=== PATIENT | female | born 1945 | race Caucasian/White ===

== ENCOUNTER 2019-06-05 17:36 | Inpatient (IN) | payer OTHER ==
[~2019-06-05] VITALS: Ht 157.5 cm; Wt 73.5 kg
[2019-06-05 17:53] VITALS: BP 98/41
[2019-06-05 18:42] LABS: ABSOLUTE NEUTROPHILS 4.1 thou/uL (1.4-8.2); BASOPHILS 0.7 % (0.0-2.0); EOSINOPHILS 3.8 % (0.0-3.0); HEMOGLOBIN 12.5 gm/dL (12.0-15.0); LYMPHOCYTES 26.4 % (24.0-44.0); MCH 32.5 pg (26.0-34.0); MCHC 33.8 g/dL (28.0-37.0); MCV 96.2 fL (80.0-100.0); MONOCYTES 7.2 % (1.0-8.0); POLYS 61.9 % (36.0-66.0); RBC 3.84 mil/uL (4.20-5.00); RDW 14.5 % (10.5-14.5); WBC 6.7 thou/uL (4.0-11.0)
[2019-06-05 18:43] LABS: URINE BILIRUBIN NEGATIVE (Negative); URINE BLOOD NEGATIVE (Negative); URINE CLARITY CLEAR; URINE COLOR YELLOW; URINE GLUCOSE-RANDOM* NEGATIVE (Negative); URINE KETONES NEGATIVE (Negative); URINE PROTEIN (DIPSTICK) NEGATIVE (Negative); URINE SPECIFIC GRAVITY >= 1.030 (1.005-1.035); URINE UROBILINOGEN 0.2 E.U./dl (0.2-1.0)
[2019-06-05 18:44] LABS: URINE LEUKOCYTES-REFLEX 1+ (Negative); URINE NITRITE-REFLEX POSITIVE (Negative)
[2019-06-05 18:48] LABS: SQUAMOUS >10 Many /LPF (0-3); URINE RBC None Seen /HPF (0-2); URINE WBC-REFLEX >25 Many /HPF (0-5)
[2019-06-05 18:49] LABS: CRYSTALS None Seen /LPF (None Seen)
[2019-06-05 18:53] LABS: CALCIUM 9.2 mg/dL (8.5-10.1)
[2019-06-05 18:58] LABS: PLATELET COUNT 426 thou/uL (150-400)
[2019-06-05 18:59] LABS: ALBUMIN 3.3 g/dL (3.4-5.0); TOTAL BILIRUBIN 0.3 mg/dL (<0.1-1.0); TOTAL PROTEIN 6.6 g/dL (6.4-8.2)
[2019-06-05 19:29] LABS: INR 2.3; PROTIME 23.7 Seconds (9.3-11.4)
[2019-06-05] MEDS ORDERED: ACETAMINOPHEN325 MG PO (20:12)
[2019-06-05] MEDS ORDERED: MYSOLINE50 MG PO (20:13)
[2019-06-05] MEDS ORDERED: LEVETIRACETAM500 M1 PO (20:14)
[2019-06-05] MEDS ORDERED: AMARYL2 M1 PO (20:15)
[2019-06-05] MEDS ORDERED: LIPITOR40 MG PO (20:22)
[2019-06-05] MEDS ORDERED: ASPIR 8181 M1 PO (20:23)
[2019-06-05] MEDS ORDERED: VITAMIN B-121000 MC2 SUBLING (20:24)
[2019-06-05] MEDS ORDERED: COUMADIN 4 MG TA4 M1 PO (20:25)
[2019-06-05] MEDS ORDERED: COUMADIN 3 MG TA3 MG PO (20:25)
[2019-06-05] MEDS ORDERED: COUMADIN7.5 MG PO (20:26)
[2019-06-05] MEDS ORDERED: TOPROL XL25 MG PO (20:26)
[2019-06-05] MEDS ORDERED: WARFARIN SODIUM6 MG PO (20:26)
[2019-06-05] MEDS ORDERED: COLACE100 MG PO (20:27)
[2019-06-05] MEDS ORDERED: TROSPIUM CHLORI20 MG PO (20:27)
[2019-06-05 20:29] VITALS: BP 95/70
[2019-06-05 21:00] VITALS: BP 140/82
--- NOTE | 2019-06-06 05:50 | NUR ---
PT TO UNIT AROUND 2100. BROUGHT BED BUT TRANFERRED TO A W/C. PT WEAK AND UNSTEADY ON FEET, REQUIRED ASSISTANCE WITH TRANSFER. VITAL SIGNS TAKEN. ASSESSMENT COMPLETED. PT AGITATED AND CALLING OUT JUST ABOUT ALL SHIFT. MEDS ENTERED. PT A&O X1. TYPE 2 DIABETIC, ACCUCHECKS ACHS. VERY HARD OF HEARING, WEARS GLASSES BUT SON REPORTS THEY WERE LEFT AT HOME. SITTING IN THE DAY ROOM ALL OF SHIFT TO BE MONITORED BY STAFF, WILL CONTINUE TO MONITOR.
[2019-06-06 09:02] VITALS: BP 109/48
--- NOTE | 2019-06-06 09:51 | NUR ---
0700 ASSUMED CARE OF PATIENT. PATIENT SITTING IN DAYROOM AT THAT TIME. PATIENT ATE BREAKFAST AND TOOK MEDICATION WITHOUT INCIDENT. PATIENT CONFUSED AND DOES NOT MAKE SENSE AT TIMES. PATIENT MOVING SELF IN WC. WILL CONTINUE TO OBSERVE
--- NOTE | 2019-06-06 10:56 | EKG ---
[facility] [place] [address] ELECTROCARDIOGRAM REPORT Name: HECTOR GRANADOS Room #: [facility]- ADM IN M.R.#: [id number] Admission: 06/05/19 Attend Phys: Darwin Phelps DO Discharge: Date of : 43 Report #: [id number] THIS REPORT FOR: cc: Simon Riggs MD,Simon Salcido,Kavon Knutson MD [facility] ~ THIS REPORT FOR: //name// [facility] ED Test Date: 2019-06-05 Test Time: 18:31:04 Pat Name: HECTOR GRANADOS Department: Room: [facility] Gender: F Computer Teacher: main : 1945 Requested By: Sean Cheatham Order Number: [id number] MD: Kaovn Salcido Measurements Intervals [place] Rate: 71 P: NM: QRS: -42 QRSD: 114 T: 13 QT: 419 QTc: 456 Interpretive Statements Atrial fibrillation Nonspecific T wave abnormality No previous ECG available for comparison Electronically Signed On 06-06-2019 10:54:45 CDT by Kavon Salcido [email or web address] <ELECTRONICALLY SIGNED> By: Kavon Salcido MD, FAC 06/06/19 1054 30 30 Kavon Salcido MD, [facility] /EPI
--- NOTE | 2019-06-06 14:13 | NUR ---
PATIENT RESTING IN BED WITH EYES CLOSED. MEDICATION TAKEN WITHOUT DIFFICULTY. PATIENT CLOSES EYES AGAIN. WILL CONTINUE TO OBSERVE.
[2019-06-06 23:08] VITALS: BP 109/48
--- NOTE | 2019-06-06 23:18 | NUR ---
Assumed care at change of shift. Pt. is sitting in day room sitting in recliner and watching a movie with peers. No signs or symptoms of pain or distress noted. Pt. took pills whole with water and no difficulties noted.
--- NOTE | 2019-06-06 23:34 | NUR ---
Pt. resting quietly in bed with eyes closed. Respirations even and non-labored. Pt. appears to be sleeping. NO signs or symptoms of pain or distress noted.
[2019-06-07 08:27] VITALS: BP 127/49
[2019-06-07 10:53] VITALS: BP 127/49
--- NOTE | 2019-06-07 11:11 | NUR ---
ASSUMED CARE AT 0700 THIS MORNING. ASSISTED UP FROM HER BED BY SWAMPER'S. SHE IS CONFUSED, BUT HAS BEEN COOPERATIVE WITH STAFF. SHE TOOK HER MORNING MEDICATIONS WITHOUT PROBLEMS NOTED. SHE ATE HER MEALS ON THE UNIT.
--- NOTE | 2019-06-07 16:31 | NUR ---
SHILA spoke to patient's son Nba Damico [phone] who informed patient does not have a DPOA. She had been living at home with him until she had a seizure on approximately June 02, 2019. She was hospitalized and then transferred to [facility] for rehab. She began to get get confused, increased agitation and verbally aggressive with staff. She has a hx of depression and dementia. Two affidavits were sent with her medical records.
[2019-06-07 20:30] VITALS: BP 127/49
--- NOTE | 2019-06-08 02:38 | NUR ---
PATIENT SAT UP IN WC IN DAYROOM UNTIL SHE WENT TO BED AROUND 2200. SHE WAS RESTLESS TONIGHT AND A/0 X 1-2. SHE DID TAKE HER MEDS WHOLE WITH WATER. JAYY RAYO NP DID COME AND SEE HER AND WROTE NEW ORDER FOR CIPRO 500MG BID FOR POSITIVE UTI WITH CULTURE GROWING KLEBSIELLA PNEUMONIAE. FIRST DOSE GIVEN TO HER WITH HS MEDS TONIGHT. PATIENT IS RESTLESS TONIGHT. WHEELS ON WC LOCKED AND PATIENT KEEPS TILTING HER WC BACK ON 2 WHEELS. SHE CONTINUES WHEN INSTRUCTED TO STOP. PATIENT WAS THEN PUT TO BED AND INCONTINENCE CARES DONE. SIDERAILS UP X4 D/T PT IS IMPULSIVE AND UNABLE TO STAND ON FEET FOR LONG. BED ALARM ON AND BED IN LOW POSITON. CONTINUED ROUNDS FOR ASSESSMENT OF STATUS AND SAFETY. DENIES SI/HI. NO AVH'S NOTED.
[2019-06-08 07:25] VITALS: BP 104/66
--- NOTE | 2019-06-08 12:05 | NUR ---
ORIENTED TO NAME ONLY UPON INITIAL ASSESSMENT THIS AM-RESTLESS AND FIDGETING IN WHEELCHAIR WITH NOTED CONSTANT HAND LEG MOVEMENT-HAD SPILLED MULTIPLE BREAKFAST ITEMS ON SELF AND FLOOR AROUND HER AND IMPULSIVLY LEANING VERY FAR FORWARD IN WHEELCHAIR TO OFFICE COMMUNICATION PROFESSOR A PEACH ON THE FLOOR -AT LAST MINUTE ASSISTED BY STAFF AND FALL TO FLOOR PREVENTED. NOTIFIED AND LANEY EDDY ORDER RECEIVED-PT EVAL CONCLUDES WELL PT UNABLE TO AMBULATE ON OWN WITHOUTASSIST D/T HEAVY LEAN TO LEFT AND INABILITY TO MAINTAIN BLANCE. CONSTRICTED AFFECT. DENIES C/O PAIN/DISCOMFORT -ASSISTED TO BR Q 2-3 HOURS AND IS COMPLIENT WITH INCONTINENT CARE
--- NOTE | 2019-06-08 12:27 | NUR ---
[employer] will assist with d/c planning [phone]. Pt is expected to go back to [facility].
--- NOTE | 2019-06-08 14:01 | NUR ---
SARAH attempted to meet [facility] pt but she is currently reluctant. Sarah then called her son loren and confimred that she will be going back to [facility] for rehab and the hope is fro her to his home. Sarah also called Marlene and left a erquesting assistance.
--- NOTE | 2019-06-08 14:46 | NUR ---
INCREASINGLY AGITATED AND RESTLESS AT APPROX 1400- YELLING OUT AT STAFF THEY WALK BY AND STATING SEVERAL TIMES "I NEED TO GO MEET MY SON-SEE HE IS RIGHT OVER THERE TALKING TO THAT MAN" ASSISTED TO BATHROOM AND WAS AGITATED WITH THIS ,RESISITVE PULLING AWAY FROM STAFF REFUSING TO WALK STATING "GET AWAY JUST LEAVE ME ALONE" ATTEMPTED TO AMBULATE IN HALLWAY WITH WALKER AND TWO STAFF MEMBERS AND GAIT BELT, AFTER 2-3 STEPS ATTEMPTED TO SIT SELF DOWN ON FLOOR STATING "I'M NOT GOING ANYWHERE UNLESS IT IS WITH MY SON" INITALLY REFUSED 1400 MEDS STATING "I AINT TAKING NOTHING" DID TAKE AFTER 3RD ATTEMPT. DENIES C/O PAIN/DISCOMFORT. ACCUCHECKS 103 AT 0700 AND 130 AT 1200
[2019-06-08 19:56] VITALS: BP 115/66
--- NOTE | 2019-06-09 01:38 | NUR ---
PATIENT SAT IN DINING ROOM ALL SHIFT UNTIL BEDTIME. PATIENT IS A/0 X 2. SHE ATE A SNACK AT HS. HER GLUCOSE WAS 130. PATIENT WAS AGITATED TONIGHT. SHE WAS CONTINOUSLY YELLING AND TRYING TO REMOVE HER SHIRT. SHE DENIES PAIN WHEN ASKED. SHE WAS TOILETED AND REPOSITIONED IN HER CHAIR MANY TIMES. PATIENT WOULD CALM SOME WHEN PEOPLE SAT AND LISTENED TO HER. SHE WAS WANTING TO SEE A FAMILY MEMBER BUT NOT CLEAR IF PERSON WAS STILL LIVING OR NOT. TOLD HER I WOULD CHECK AND SEE IF I COULD FIND OUT WHERE THEY WERE AND GET BACK WITH HER. THIS SEEMED TO CALM HER. SHE THEN REFUSED TO TAKE HALF OF HER HS MEDS TONIGHT. PATIENT WAS VERY RESTLESS AND AGITATED. NOTIFIED DR BARNES SPECTROSCOPIST AND HE GAVE ORDER FOR HALDOL 5MG IM AND LORAZEPAM 0.5MG IM. THIS WAS GIVEN AT 2114 WITH HELP OF SECURITY SINCE SHE WAS SWINGING AND APPEARING PARANOID. PT INCONTINENT AND CHANGED AND PLACED IN BED WITHIN THAT HOUR. PATIENT IS SLEEPING SOUNDLY. HER HEART WAS REGULAR AND LUNGS CTA BUT DIMINISHED. LBM 06/04. ABDOMEN ROUND WITH ACTIVE BOWEL SOUNDS. PATIENT SLEEPING AT THIS TIME. BED IN LOW POSITION AND BED ALARM ON. CONTINUAL ROUNDING TO ASSESS SAFETY AND STATUS OF PATIENT. PATIENT'S RESPIRATIONS EVEN AND UNLABORED WITH OCCASIONAL SNORING.
[2019-06-09 06:41] LABS: INR 2.4; PROTIME 24.6 Seconds (9.3-11.4)
[2019-06-09 06:43] LABS: ABSOLUTE NEUTROPHILS 3.8 thou/uL (1.4-8.2); BASOPHILS 0.3 % (0.0-2.0); EOSINOPHILS 2.7 % (0.0-3.0); HEMATOCRIT 37.9 % (37.0-47.0); HEMOGLOBIN 12.7 gm/dL (12.0-15.0); LYMPHOCYTES 35.2 % (24.0-44.0); MCH 32.6 pg (26.0-34.0); MCHC 33.5 g/dL (28.0-37.0); MCV 97.3 fL (80.0-100.0); PLATELET COUNT 345 thou/uL (150-400); POLYS 53.8 % (36.0-66.0); RDW 14.4 % (10.5-14.5)
--- NOTE | 2019-06-09 06:46 | NUR ---
PATIENT HAD MODERATE WET BRIEF THIS MORNING. BLADDER SCANNED AND SHOWED 489ML URINE RESIDUAL. STRAIGHT CATHED PATIENT AND REMOVED 450CC OF URINE. PATIENT TOLERATED WELL. PATIENT TOOK HS MED WHOLE WITH WATER BEFORE CATHING. PATIENT STILL GROGGY FROM EFFECTS OF PRN HALDOL AND LORAZEPAM GIVEN IM LAST EVENING. PATIENT CLEANED AND NEW BRIEF APPLIED. PATIENT REQUESTED TO SLEEP A LITTLE LONGER. PATIENT SLEEPING AT THIS TIME. BED IN LOW POSITION AND BED ALARM ON. CONTINUING TO MONITOR.
[2019-06-09 06:50] LABS: CALCIUM 8.7 mg/dL (8.5-10.1); CREATININE 0.9 mg/dL (0.6-1.0); POTASSIUM 3.8 mmol/L (3.5-5.1)
[2019-06-09 07:46] VITALS: BP 132/78
--- NOTE | 2019-06-09 09:52 | NUR ---
SHILA faxed updates to [facility]
--- NOTE | 2019-06-09 11:28 | NUR ---
ASSUMED CARE OF PT. AT 0700 THIS MORNING. PT. WAS VERY TIRED AFTER BEING UP SO MUCH DURING THE COFFEE WEIGHER. SHE SLEPT IN PAST BREAKFAST. SHE DID TAKE HER MEDICATIONS WITH MUCH COAXING FROM THIS RN. SHE ATTEMPTED TO SPIT THEM OUT SEVERAL TIMES, BUT DID EVENTUALLY GET THEM DOWN. HAS BEEN IN BED MUCH OF THIS MORNING. OT HERE TO WORK WITH PT. AT 11:30 A.M. SHE DID NOT EAT BREAKFAST.
[2019-06-09 19:27] VITALS: BP 138/72
--- NOTE | 2019-06-10 01:28 | NUR ---
PATIENT ADMITTED PER CART AND WALKED TO BATHROOM VOIDED PRIOR TO GOING TO BED. IS ALERT X 4. SKIN WARM AND DRY. RESP EVEN AND UNLABORED. ONLY HAS A SMALL BRUISE ON HER LEFT INNER THIGH. HAS A BACK AND HEADACHE RATES IT #10. STARTED ALL OF HER HS MED PLUS GIVEN PAIN MED FOR PAIN. SWOLLWS WELL. AMBULATES INDEPENT TO BATHROOM WITH WALKER. HAS A GOOD AND STEADY GAIT. DENIES ANY SI AT THIS TIME" i TOLD THE NURSE THAT i WANTED TO DROWN HERSELF IN DIEHL BEHIND HER HOUSE, BECAUSE SHE THOUGHT SHE COULD GET PAIN MEDICATION". SHE TOLD RN THAT SHE DOES NOT WANT TO KILL HERSLEF THAT HER PAIN WAS SO BAD AND THEY WOULD NOT GIVE HER ANYTHING. NO OTHER SKIN ISSUES. LUNGS CTA. NO COUGH NOTED. VS STABLE. EDUACTED PATIENT TO SURROUNDINGS AND ROOM. HOSPITALIST CALLED AND DR BARNES NOTIFIED AND ORDERS RECEIVED. PATIENT FEELING BETTER NOW AND WANTS TO SLEEP. ATE CRACKERS AND JUICE. CONT PLAN OF CARE. PAIN IN HEAD IMPROVING SINCE SHE ATE. WILL MONITOR CLOSELY.
--- NOTE | 2019-06-10 03:56 | NUR ---
PATIENT ASSESSED AND IS ALERT X1-2. SKIN WARM AND DRY. RESP EVEN AND UNLABORED. SITTING OUT IN RECLINER YELLING AND TRYING TO GET UP. ALL MEDS GIVEN AND FATOUMATA WELL WITH ICE CREAM. IS SKOKOMISH. IS ON A CARB CONTROL DIET BS WAS 161. IS UNSTEADY ON HER FEET. 2 ASSIST TO BSC AND VOIDED WELL. PLACED TO BED FOR SLEEP. HAS A UTI ALSO. ENCOURGED TO DRINK MORE FLUIDS. WATER GIVEN. PATIENT VERY LOUD AND YELLING IN ROOM, HER ROOMATE VERY UPSET WITH HER. FINALLY SHE WAS UP WITH 2 PERSON ASSIST TO JAY CHAIR WITH LAP BAND. DR BARNES CALLED AND DESCRIBED HER BEHAVIOR TO HIM. HE ORDERED MEDS AND WAS ORDERED TO DC HALDOL MED 2.5 MG, TO GIVE HALDOL 3MG AND 1MG OF ATIVAN GIVEN SHE STILL SITTING IN JAY CHAIR YELLING FOR ABOUT 1 HOUR. REPOSITIONED HER WILL MONITOR FOR CHANGES. AND SHE IS STILL SLEEPING. CONT PLAN OF CARE. LUNGS CTA. NON-PRODUCTIVE COUGH. WAS VERY DISORIENTATED AND DELUSIONAL PRIOR TO NEW DR ORDERS. REMAINS SLEEPING AT PRESENT. AND SHE WAS GETTING VERY SLEEPY. HAS BEED ASLEEP NOW.
--- NOTE | 2019-06-10 06:33 | NUR ---
PATIENT AWAKEN AND NOW STARTING TO YELL. WATER GIVEN WITH AM MEDICATION. IS DELUSIONAL AT PRESENT. NO SI/HI NOTED. WILL MONITOR.
[2019-06-10 08:43] VITALS: BP 136/85
--- NOTE | 2019-06-10 18:05 | NUR ---
ORTIENTED TO NAME ONLY. SITTING IN JAY CHAIR OR W/C IN DINNING ROOM ALL DAY. FAIR APPETITE FOR MEALS. ORIENTED TO NAME ONLY. TOOK MEDICATIONS WHOLE WITHOUT DIFFICULTY. NO C/O PAIN. TRANSFERS WITH MAX ASSIST TO BSC.
[2019-06-10 19:26] VITALS: BP 134/60
[2019-06-10 19:45] VITALS: BP 134/60
--- NOTE | 2019-06-11 04:13 | NUR ---
PATIENT WAS UP IN DINING ROOM SITTING IN HER WC WITH LAP SURJIT ON THIS EVENING UNTIL SHE WAS ASSISTED TO BED AROUND 2200. PATIENT IS VOIDING URINE AND IS INCONTINENT AT TIMES AND USES TOILET AT TIMES WITH MODERATE ASSIST SINCE DOESN'T STAND LONG. VSS. PATIENT WAS ANXIOUS ABOUT WHERE HER SON IS TONIGHT. DID LET HER KNOW THAT HE KNOWS WHERE SHE IS AT BUT HE'S UNABLE TO VISIT D/T THE COVID 19 RESTRICTIONS. SHE DID EAT A HS SNACK. SHE TOOK HER MEDS WHOLE AND WITH WATER. SHE HAS BEEN COOPERATIVE BUT WAS GETTING AGITATED WHEN IT WAS TAKING LONGER THAN SHE WANTED FOR ASSISTANCE TO GO TO BED. NO SI/HI/AVH. DENIES PAIN. PT DID HAVE SMALL BM 06/10/19. ORDERS FOR FLEETS ENEMA DAILY FOR CONSTIPATION IF NEEDED. PATIENT HAS BEEN SLEEPING SOUNDLY THIS EVENING. BED IN LOW POSITION AND BED ALARM IS ON. SIDERAILS UP X 4. ROUTINE ROUNDING TO ASSESS FOR STATUS AND SAFETY OF PATIENT.
[2019-06-11 09:07] VITALS: BP 133/70
[2019-06-11 09:09] VITALS: BP 133/70
--- NOTE | 2019-06-11 10:05 | NUR ---
1000 RESUMMED CARE FROM OVERNIGHT SHIFT THIS AM, PATIENT IN DAY ROOM IN W/C YELLING. PATIENT IS ORIENTED TO SELF ONLY AND SOMETIMES SHE BABBLES AND YOU CANNOT UNDERSTAND WHAT SHE IS SAYING. PATIENTS ABDOMEN SOFT ROUND BOWEL SOUNDS PRESENT IN 4 QUADRANTS. PATIENTS LUNGS CLEAR PATIENT IS UNABLE TO TELL YOU ABOUT SI/HI/AH/VH AT PRESENT. PATIENT WAS INCONITENT OF URINE AFTER BREAKFAST AND WE CLEANED HER UP AND SHE WENT BACK INTO THE DAY ROOM. WILL CONTINUE TO MONITOR PATIENT FOR SAFETY AND BEHAVIORS.
--- NOTE | 2019-06-11 12:21 | NUR ---
RT progress note- Patient engagement is dependent upon her mood. She remains disoriented and unable to follow tasks but is accepting of social and reminiscent conversation at times.
--- NOTE | 2019-06-11 16:11 | NUR ---
1600 RESUMMED CARE FROM OVERNIGHT SHIFT THIS AM, PATIENT IN DAY ROOM YELLING OUT LOUD TO ANOTHER PATIENT. PATIENT ATE BREAKFAST TOOK MEDICATION WITHOUT INCIDENCE. PATIENT HAD AN EPISODE OF INCONTINENCE LATTER PART OF MORNING AND HAD TO BE CLEANED UP. PATIENTS ABDOMEN SOFT ROUND BOWEL SOUNDS PRESENT IN ALL 4 QUADRANTS. PATIENTS LUNGS CLEAR PATIENT NOT ABLE TO TELL ME WITH CERTAINTY SI/HI/AH.VH AT PRESENT. PATIENT HAS SOME CONFUSION IS REDIRECTABLE WILL CONTINUE TO MONITOR PATIENT FOR SAFETY AND BEHAVIORS.
--- NOTE | 2019-06-11 16:21 | NUR ---
SHILA and Dr robert spoke with pt's son Nba and discussed placement and d/c plans. Nba will come up to visit pt tomorrow at 11 am. Pt lives at home with Nba and will likely try rehab at [facility] and then back to home. Unless family cannot manage the 10/09 care will need LTC.
[2019-06-11 21:16] VITALS: BP 158/68
--- NOTE | 2019-06-12 02:27 | NUR ---
ASSUMED CARE OF PT AT 1900HRS. FALL PRECAUTION IN PLACE. PT USES WC WITH A LAP SURJIT. ASSESSMENT CHARTED. PT WAS ABLE TO TAKE MEDS WHOLE WITH WATER. PT DENIES PAIN, NAUSEA, SI, HI, AH, AND VH. PT IS INCT AT TIMES. PT WAS ABLE TO GET COMFORTABLE AND SLEEP PART OF THE SHIFT. VSS AND NO S/S OF ACUTE DISTRES. WILL CONTINUE TO MONITOR.
[2019-06-12 08:05] VITALS: BP 122/84
--- NOTE | 2019-06-12 09:58 | NUR ---
0700 ASSUMED CARE OF PATIENT, PATIENT IN BED ASLEEP AT THAT TIME. PATIENT TO DAYROOM FOR BREKFAST. MEDICATION TAKEN WHOLE WITHOUT DIFFICULTY. NO C/O PAIN. DENIES NEEDS. WILL CONTINUE TO OBSERVE.
--- NOTE | 2019-06-12 11:47 | NUR ---
SON HERE TO VISIT PATIENT AT THIS TIME. VISITATION ALLOWED BY DR MASTERS AND SW. PATIENT AND SON IN CONFRENCE ROOM.
--- NOTE | 2019-06-12 12:02 | NUR ---
SHILA met with Pt's son Nba, while on a visit to the unit. Nba inquired about Pt's returning to [facility]. SHILA reviewed notes and informed Nba that according to the notes, Pt will return to [facility] after discharge from [facility]. Nba had no other questions or concerns.
--- NOTE | 2019-06-12 23:29 | NUR ---
Care assumed of patient at 1915: Patient irritable and agitated at start of shift. Patient hollering out, disorganized, high pitch voice. Staff approached patient several times, asking what was wrong, what she needed, etc. Patient continued to yell. Patient then started to slide forward in w/c in an attempt to lower self to the floor. Patient assisted to recliner for comfort. Patient denies pain or discomfort. Denies SI/HI/AH/VH. Patient did ask to leave and go home. Attempted to re-oriented patient to unit and time. This was not effective. Patient alert and oriented to person only. Patient physically aggressive by hitting and attempting to bite while being re-positioned in chair. There is a male peer that appears to be calming to this patient. Patient originally spit out HS medication. Nurse approached patient several times but she kept refusing medication. Male peer encouraged patient to take HS medication and she did. Patient calling peer "honey" and "sweetheart". Patient was able to calm down fairly quickly after taking HS medication. Patient had less disorganized speech, was able to speak clearly, and answer questions appropriately. Patient stated she was ready to go to bed. Patient assisted to bed with max assist x2. Told staff "good night" and was able to fall asleep without difficulty.
--- NOTE | 2019-06-13 08:04 | NUR ---
0700 ASSUMED CARE OF PATIENT, PATIENT SITTING UP IN WC IN DAYROOM. 0710 PATIENT CONFUSED AND YELLING AT EVERYONE STATING "I HAVE TO GO". NISSAN SALES CONSULTANT TALKS TO PATIENT AND PATIENT ATTEMPTING TO HIT NISSAN SALES CONSULTANT. VITAL UNABLE TO OBTAIN BAT THIS TIME. PATIENT SITTING IN WC AT TABLE. WILL CONTINUE TO OBSERVE.
[2019-06-13 09:00] VITALS: BP 106/30
[2019-06-13 09:45] VITALS: BP 110/36
--- NOTE | 2019-06-13 10:07 | NUR ---
PATIENT REFUSED VITALS THIS MORNING. AFTER MEDICATION GIVEN WITH BREAKFAST CONTROL INTEGRATION ENGINEER WAS ABLE TO OBTAIN VS. @9AM BP 106/30 PULSE RANGE FROM 63-89. @0945 BP- 110/36 PULSE RANGE 63-89. BP MEDICATION HELD THIS AM. DR VIVIAN ARMSTRONG AND WILL NOTIFY. PATIENT TO BSC WITH LARGE BM PATIENT NOTED WITH CONSTIPATION. WILL GIVE PRUNE JUICE TO PATIENT.
[2019-06-13 11:40] VITALS: BP 107/52
--- NOTE | 2019-06-13 11:46 | NUR ---
@1140 BP 107/52 PULSE RANGE 75-90 DR PARK HERE NOTIFIED OF LOW BP'S. PATIENT DRINKING SOME H2O SMALL AMOUNT. WILL CONINUE TO OBSERVE.
--- NOTE | 2019-06-13 16:12 | NUR ---
PATIENT SLEEPING WITH EYES CLOSED IN WC WHILE SITTING IN DAYROOM. WILL CONTINUE TO OBSERVE.
[2019-06-13 20:03] VITALS: BP 122/83
--- NOTE | 2019-06-13 22:50 | NUR ---
Care assumed of patient at 1915: Patient seated in w/c in dayroom at start of shift. Patient appeared rather calm, pleasant and cooperative. Over the hour, as the sun went down, patient became more agitated, restless, screaming "Kevyn", exit seeking, banging on doors, kicking the redman and doors, irritable. Staff attempted to re-direct patient with snack, magazines, puzzles, markers. None of which were effective. When staff tried to get close to patient, she would hit, kick and try to bite. Required staff x2 to collect HS blood sugar. Patient refused HS PO medication. Threatened to spit at staff. Attempting to slide self forward out of w/c. Turning self side ways in w/c to be able to kick staff. The behaviors displayed have been consistent over the last 2 nights. Order obtained to change HS scheduled Haldol to 6pm. Order also obtained for Ativan and Haldol IM one time dose. Blood pressure 122/83 and HR 76 this evening. Medication was administered with staff assist x4 due to aggression. Insulin was also administered at that time. Patient remained restless for approximately 1.5 hours after injection administered. Patient was able to be assisted to bedside commode. Continent of bowel, incontinent of bladder. Patient then assisted to bed. Patient speaking more clearly and cooperative at this time. Patient resting quietly in bed at this time.
[2019-06-14 07:43] VITALS: BP 141/64
--- NOTE | 2019-06-14 09:37 | NUR ---
0700 ASSUMED CARE OF PATIENT, PATIENT SITTING IN WC IN DAYROOM WITH EYES CLOSED. PATIENT DROWSY AND UNABLE TO STAY AWAKE. FEW BITES OF BREAKFAST TAKEN. UNABLE TO GIVE MEDICATION DUE TO DROWSINESS. WILL CONTINUE TO OBSERVE.
--- NOTE | 2019-06-14 10:21 | NUR ---
@10 AM PATIENT AWAKE, MEDICATION TAKEN WELL. YOGURT EATEN AT THIS TIME. SIPS OF H2O GIVEN. PATIENT CONTINUES TO SIT IN WC IN DAYROOM. DENIES OTHER NEEDS.
--- NOTE | 2019-06-14 17:20 | NUR ---
PATIENT OBSERVED WITH DIFFICULTY EATING WITHOUT HELP. RIGHT SIDED WEAKNESS NOTED AND PATIENT UNABLE TO GRAB FOOD WITH RIGHT SIDE. PATIENT USES LEFT SIDE AND IS ABLE TO BLACK TOP SPREADER MACHINE OPERATOR FOOD A BIT EASIER. DIFFICULT FOR PATIENT TO MAINTAIN A STEADY HAND WHILE FEEDING HERSELF. FINGER FOODS HELP SOMEWHAT BUT STILL HAS DIFFICULTY MANAGING TO GET FOOD TO MOUTH. SPECTROGRAPH OPERATOR HAS ASSISTED PATIENT IN EATING ALL MEALS TODAY. WILL CONTINUE TO OBSERVE
[2019-06-14 19:51] VITALS: BP 118/55
[2019-06-14 22:52] VITALS: BP 118/55
--- NOTE | 2019-06-15 00:12 | NUR ---
PATIENT WAS UP IN DAYROOM WHEN THIS NURSE CAME ON DUTY AT 1900. SHE WAS SITTING IN HER WC WITH LAPBUDDY IN PLACE AND WHEELING HERSELF BETWEEN TABLE AND HALLWAY IN FRONT OF NURSE STATION. SHE HAS BEEN CALM TONIGHT. NO BEHAVIORS. PATIENT HAD HS SNACK. HER GLUCOSE AT HS WAS 109. PATIENT TOOK HER MEDS WHOLE WITH WATER. SHE DENIES PAIN. NO SI/HI/AVH. SHE HAS NOT VOICED ANY CONCERNS TONIGHT. PATIENT ASSISTED TO BED. SHE DOES HAVE WEAKNESS ESPECIALLY TO RIGHT SIDE OF BODY. INCONTINENCE CARES DONE. VSS. HRR, LUNGS CTA. BED IN LOW POSITION AND BED ALARM ON. PT WITH RESPIRATIONS REGULAR. APPEARS COMFORTABLE. ROUTINE ROUNDS FOR ASSESSMENT OF STATUS AND SAFETY. CONTINUING TO MONITOR.
[2019-06-15 08:43] VITALS: BP 129/55
--- NOTE | 2019-06-15 12:39 | NUR ---
Assess due to length of stay. Admitted to H for anxiety/depression. Hx dementia, DM, HTN, CVA. BG 89-155. Intake records show variable intake 25-100%. Wts stable since admit 162 lb. Visit during lunch, pt not sitting still, unable to answer questions. Eating but also note chips all over floor under chair. Noted documentation of pt having right side weakness and needs feed assist at times. Low nutrition risk however will also add 1 glucerna shake per day as intake is inconsistent at times.
--- NOTE | 2019-06-15 14:00 | NUR ---
Sarah called and left a 2nd VM for [employer] to discuss the d/c plans. Sarah had spoken to [facility] and they did not accept this pt back. Sarah is seekign clairification about this. Sarah and Dr Phelps left a VM for pt's son to discuss the d/c plans as this pt will need 24/7 supervision and likelt LTC after her snf stay.
[2019-06-15 20:14] VITALS: BP 122/95
[2019-06-15 21:00] VITALS: BP 122/95
[2019-06-16 01:49] LABS: URINE BILIRUBIN NEGATIVE (Negative); URINE BLOOD NEGATIVE (Negative); URINE CLARITY CLEAR; URINE COLOR YELLOW; URINE GLUCOSE-RANDOM* NEGATIVE (Negative); URINE KETONES NEGATIVE (Negative); URINE LEUKOCYTES-REFLEX NEGATIVE (Negative); URINE NITRITE-REFLEX NEGATIVE (Negative); URINE PROTEIN (DIPSTICK) NEGATIVE (Negative); URINE SPECIFIC GRAVITY >= 1.030 (1.005-1.035); URINE UROBILINOGEN 0.2 E.U./dl (0.2-1.0)
--- NOTE | 2019-06-16 03:22 | NUR ---
TOOK OVER PATIENT CARE AT 1900. PATIENT WAS IN DAYROOM IN WC WITH LAP SURJIT ON. SHE WHEELED HER WC OUT TO [place] IN FRONT OF NURSE STATION. SHE STARTED OUT CALM AND COOPERATIVE. HER VSS. HER HS GLUCOSE WAS 103. PATIENT HAD HS SNACK. PHYSICAL ASSESSMENT WNL. EVENING WORE ON PATIENT BEGAN TAKING OFF LAP SURJIT AND TAKING OFF HER SHIRT. SHE BECAME MORE AGITATED STAFF WOULD REAPPLY LAPBUDDY. WITHOUT LAPBUDDY PATIENT BENDS OVER TO TRY AND PICK THINGS OFF THE FLOOR AND NEARLY FALLS OUT OR SLIDES HER BODY OUT OF CHAIR. FINALLY TOOK LAP SURJIT OFF PATIENT AND WATCHED HER CLOSELY. SHE STARTED BECOMING VERBAL AND YELLING SHE DIDN'T WANT ANYONE AROUND HER AND TO LEAVE HER ALONE. SHE WAS UNDIRECTABLE. A MALE PATIENT LATER INSISTED ON WHEELING PATIENT AROUND AND WE HAD TO STOP HIM FROM DOING THIS AND PATIENT WAS YELLING AT PT AND STAFF WE TRIED TO COME HELP HER. SECURITY WAS CALLED TO HELP WITH MALE PATIENT. NASIR OLVIAS WAS CALLED D/T PATIENT AGITATION AND TRYING TO SIT HERSELF ON THE GROUND AND YELLING AND SCREAMING AND KICKING STAFF. ORDERS WERE RECIEVED AT 2 DIFFERENT TIMES SINCE PATIENT WOULD NOT CALM DOWN. HALDOL 5MG IM GIVEN AT 2230. PATIENT STILL RESTLESS SO DID BLADDER SCAN ON PATIENT AND SHOWED SHE HAD 2ML IN BLADDER. PATIENT STOOD UP AND WAS WALKING AROUND IN HER ROOM AND CAME OUT TO DAYROOM VERY UNSTEADY AND HANGING ON TO FURNITURE AND HAND RAILS. PT VERY ANXIOUS. SHE WOULD NOT SIT AND WHEN DID SIT HER IN WC SHE KEPT TRYING TO STAND UP AND MOVE TO OTHER CHAIRS. WHEN PLACED IN CHAIR WITH LAPBUDDY SHE REMOVED LAPBUDDY AND WAS UP WALKING AND TRYING TO GET BACK IN WC. PT ASKED TO GO TO RESTROOM. PT ASSIST X 2 TO BSC. PATIENT SAT BUT UNABLE TO VOID. HER BRIEF WAS SOAKED. PLACED PATIENT BACK IN BED AND STRAIGHT CATHED PATIENT FOR UA COLLECTION. RESIDUAL 1AS 100CC. URINE SPECIMAN TAKEN TO LAB. PATIENT WOULD NOT LAY STILL AND CONTINUED TO BE RESTLESS. ANOTHER ORDER RECIEVED FOR OLANZAPINE 10MG STAT. THIS WAS GIVEN IM. PATIENT IN BED AND SITTER WITH PATIENT UNTIL SHE FELL ASLEEP. PATIENT WAS STILL RESTLESS AND MOVING, APPEARING TO FIGHT SLEEP. BP DONE AND WAS 96/58. GLUCOSE CHECKED AND WAS 114. TYLENOL 650MG PO CRUSHED IN PUDDING GIVEN TO PATIENT TO SEE IF THIS WOULD HELP RELAX ANY GENERAL DISCOMFORT SHE MAY HAVE HAD. PATIENT DENIES PAIN ALL NIGHT. PT DID DRINK SOME OJ ALSO. PATIENT THEN WAS ABLE TO LAY STILL AND FELL ASLEEP AFTER 1/2 AN HOUR. BED IN LOW POSITION AND BED ALARM ON. PATIENT SHOWING NO SIGNS OF DISTRESS. ROUTINE ROUNDS TO ASSESS FOR STATUS AND SAFETY. WILL CONTINUE TO MONITOR.
--- NOTE | 2019-06-16 08:42 | NUR ---
SHILA recieved a VM from Crow at [facility] [phone] and he will be faxing a listing of rehabs for this pt
[2019-06-16 09:00] VITALS: BP 107/71
--- NOTE | 2019-06-16 11:07 | NUR ---
Sw sent referral to [facility], they take this pt's insurance , have memory care and take Medicaid if needed for LTC.
--- NOTE | 2019-06-16 11:14 | NUR ---
Sarah also sent a referral to [facility] to start a medicaid application for this pt for possible placement.
--- NOTE | 2019-06-16 13:42 | NUR ---
SHILA spoke with Shae at [facility] and she stated that they are considering this pt for skilled. They would like to see 3 days of better notes and sw will f/u on Saturday.
--- NOTE | 2019-06-16 17:25 | NUR ---
ORIENTED TO NAME ONLY. SPEECH DIFFICULT TO UNDERSTAND. SPIT MEDICAITONS OUT AFTER 0900 MED PASS. POOR APPETITE FOR MEALS. CONFUSED YET CALM.
[2019-06-16 19:42] VITALS: BP 134/79
--- NOTE | 2019-06-17 01:07 | NUR ---
Assumed care of patient this pm shift. Patient in her bedroom. Patient is in hospital gown. Patient denies pain. Patient denies hi/si. Patient takes medications whole. Patient ambulates with a wheel chair. Patients assessment shows clear breath sounds, active bowel sounds, and s1 s2 heard with auscultations. Patient is in good spirits, confused but cooperative. We will continue to monitor.
[2019-06-17 07:26] VITALS: BP 143/63
[2019-06-17 09:50] VITALS: BP 134/63
--- NOTE | 2019-06-17 11:04 | NUR ---
1100 RESUMMED CARE FROM OVERNIGHT SHIFT THIS AM, PATIENT QUIET IN DAY ROOM WAITING FOR BREAKFAST. PATIENT TOOK MEDICATION WITH ASSITANCE FROM NURSE. PATIENT CANNOT TELL YOU IF SHE HAS SI/HI/AH/VH AT PRESENT DUE TO CONFUSION OF THOUGHTS. PATIENT ABDOMEN SOFT ROUND BOWEL SOUNDS PRESENT IN ALL 4 QUADRANTS. LUNGS CLEAR PATIENT WORKED WITH OT/PT THIS AM PATIENT IS QUIET COOPERATIVE. WILL CONTINUE TO MONITOR PATIENT FOR SAFETY AND BEHAVIORS.
--- NOTE | 2019-06-17 12:15 | NUR ---
Sarah spoke with Nba and provided an update this included the d/c plan back to [facility] if allowed and then [facility] or [facility]. This alldepends if this pt has a few " good evenings'. d/c is tentative for Saturday. Sarah sent updates from 06/14 to 06/16 to [facility] and [facility]
--- NOTE | 2019-06-17 13:17 | NUR ---
SHILA called and left a VM with Shae at [facility] about the plan of this pt d/c on Saturday. SHILA then sent updates.
[2019-06-17 19:39] VITALS: BP 109/64
--- NOTE | 2019-06-18 00:27 | NUR ---
Assumed care of patient this pm shift. Patient appears depressed. Patient is confused. Patient takes medications whole. Patient ambulates via wheel chair. Patient is dressed neatly in her own clothes. Patient denies pain. Patient denies hi/si. Patients assessment shows clear breath sounds, active bowel sounds, s1 s2 heard with auscultation. Patient needs assistance toileting and getting to bed. We will continue to monitor.
[2019-06-18 07:33] VITALS: BP 112/64
[2019-06-18 08:20] VITALS: BP 112/64
--- NOTE | 2019-06-18 08:23 | NUR ---
PT SITTING OUT IN DINING ROOM. PT EATING BREAKFAST. PT TOOK MEDS WHOLE WITH ASSISTANCE. PT ALERT TO PERSON. PT IS IN W/C. PT CAN WALK WITH ASSISTANCE.
--- NOTE | 2019-06-18 12:27 | NUR ---
Sarah spoke with [facility] and then sent updates notes to indicate that pt is no longer using the [facility] [place]. Pt is ready to d/c. Pending a milk pickup truck driver time.
--- NOTE | 2019-06-18 15:57 | NUR ---
Pt has been accepted clinically to [facility] and we are now penidng insurance auth for the skilled stay. Shae from [facility] stated that she will call me in the AM to confirm and to set up the d/c plans and transportation.
--- NOTE | 2019-06-18 16:00 | NUR ---
SW called and spoke with Ed- son and reported that the d/c was likely at [facility] tomorrow and he was satisfied with this outcome.
--- NOTE | 2019-06-18 16:48 | NUR ---
PT WAS WALKING WITH PHYSICAL THERAPY TODAY WITH STEADY GAIT. PT IS GETTING UP OUT OF CHAIR WITHOUT ASSIST. PT ENCOURAGED TO SIT IN CHAIR. PT STATED SHE NEEDS TO CHECK ON THE CHILDREN. PT CAN WALK WITH WALKER WITH STAND-BY ASSIST.
[2019-06-18 19:15] VITALS: BP 108/60
--- NOTE | 2019-06-19 00:46 | NUR ---
Care assumed of patient at 1915: Patient seated in w/c at start of shift, in dayroom. Patient tearful, asking about "hernando". Another peer sat with patient, attempted to speak with her and comfort her. This was helpful. Patient having rambling, disorganized speech. Patient was able to stop speaking, listen to a question, and answer simple yes/no questions. Patient alert and oriented to person only. After speaking with peer and nurse, patient was no longer tearful or appeared depressed. Patient calm, pleasant and cooperative. Patient denies SI/HI/AH/VH. Unknown if she understands what is being asked of her, however. Denies pain or discomfort. Took HS medication crushed without difficulty. Ate 100% HS snack. Nurse fed patient yogurt, patient stated "wow, that is good!". Patient was assisted to bed at a reasonable hour. Patient stated "I'm tired". Appears that patient is able to form sentences and thoughts and express them fairly well this evening. Patient was able to ambulate a couple steps from w/c to bed with max assist x2. Incontinent of bladder. Compliant with dior care and linen change. No aggression or agitation observed this shift. Patient able to fall asleep without difficulty and is resting quietly at this time.
[2019-06-19 08:10] VITALS: BP 116/65
--- NOTE | 2019-06-19 08:42 | NUR ---
PT SITTING OUT IN DINING ROOM. PT NEEDS ASSIST WITH OPENING PACKAGES. PT DENIES ANY PAIN. PT KNOWS NAME, DIDN'T KNOW BIRTHDAY. PT TOOK MEDS THIS AM ONE AT A TIME. PT SPIT OUT SOME PILLS WHEN IT WAS TOO MANY IN HER MOUTH. PT ABLE TO TAKE MEDS WHOLE.
[2019-06-19] MEDS ORDERED: COUMADIN 2 MG TA2 M1 PO (09:28)
[2019-06-19] MEDS ORDERED: PROZAC40 MG PO (09:30)
[2019-06-19] MEDS ORDERED: HALOPERIDOL 1 MG1 MG PO ×3 (09:30→09:31)
[2019-06-19] MEDS ORDERED: TROSPIUM CHLORI20 MG PO (09:32)
[2019-06-19 10:46] VITALS: BP 116/65
--- NOTE | 2019-06-19 13:05 | NUR ---
PT FED SELF FOR LUNCH. PT DOES WELL WITH FINGER FOODS. PT DRESSED AND READY TO DISCHARGE BACK TO [facility]. TALKED TO SON RON HE IS AWARE OF DISCHARGE, AND HE WAS HAPPY ABOUT IT.
--- NOTE | 2019-06-19 13:20 | NUR ---
PT LEFT VIA W/C VAN TO [facility].
--- NOTE | 2019-06-19 13:50 | NUR ---
GAVE REPORT TO ISHAN CARY AT [facility].
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
== END 2019-06-19 13:51 | DRG 884 ==
LOC: ER 17:36 → EROBS 19:41 → SBH 19:41
PROVIDERS: Internal Medicine; Nurse Practitioner Psychiatric/Mental Health; Physician Assistant; ADMIT Psychiatry & Neurology Psychiatry
DX: F01.51 Vascular dementia, unspecified severity, with behavioral disturbance (principal); N18.3 Chronic kidney disease, stage 3 (moderate); J15.0 Pneumonia due to Klebsiella pneumoniae; I48.92 Unspecified atrial flutter; I13.0 Hypertensive heart and chronic kidney disease with heart failure and stage 1 through stage 4 chronic kidney disease, or unspecified chronic kidney disease; I50.32 Chronic diastolic (congestive) heart failure; N39.0 Urinary tract infection, site not specified; G93.40 Encephalopathy, unspecified; F41.9 Anxiety disorder, unspecified; G47.00 Insomnia, unspecified; E11.22 Type 2 diabetes mellitus with diabetic chronic kidney disease; E78.5 Hyperlipidemia, unspecified; G43.709 Chronic migraine without aura, not intractable, without status migrainosus; Z96.652 Presence of left artificial knee joint; B96.1 Klebsiella pneumoniae [K. pneumoniae] as the cause of diseases classified elsewhere; I67.9 Cerebrovascular disease, unspecified; Z86.73 Personal history of transient ischemic attack (TIA), and cerebral infarction without residual deficits; Z79.4 Long term (current) use of insulin; Z79.899 Other long term (current) drug therapy; Z79.01 Long term (current) use of anticoagulants; Z79.82 Long term (current) use of aspirin; Z79.84 Long term (current) use of oral hypoglycemic drugs; Z87.440 Personal history of urinary (tract) infections
CPT/HCPCS: 10880